=== PATIENT | male | born 1995 | race Caucasian/White ===

== ENCOUNTER 2021-07-07 09:24 | Emergency (ER) | payer SELFPAY ==
[~2021-07-07] VITALS: Ht 175.3 cm; Wt 60.8 kg
[~2021-07-07 09:24] MED LIST: CIPRO500 MG PO
[2021-07-07 12:04] VITALS: BP 136/66
== END 2021-07-07 12:04 | disposition home or self-care (01) | DRG 728 ==
LOC: ED 09:24
DX: A64 Unspecified sexually transmitted disease (principal); F17.210 Nicotine dependence, cigarettes, uncomplicated

== ENCOUNTER 2021-11-21 20:01 | Emergency (ER) | payer SELFPAY ==
[~2021-11-21] VITALS: Ht 175.3 cm; Wt 63.0 kg
[2021-11-21 23:45] VITALS: BP 121/78
[2021-11-21] MEDS ORDERED: VIBRAMYCIN100 M2 PO (23:57)
== END 2021-11-22 01:07 | disposition home or self-care (01) | DRG 605 ==
LOC: ED 20:01
DX: S71.152A Open bite, left thigh, initial encounter (principal); S31.815A Open bite of right buttock, initial encounter; F17.200 Nicotine dependence, unspecified, uncomplicated; W54.0XXA Bitten by dog, initial encounter; Y93.55 Activity, bike riding; Y92.410 Unspecified street and highway as the place of occurrence of the external cause

== ENCOUNTER → 2024-04-27 | Emergency (ER) | payer OTHER ==
[~2024-04-27] VITALS: Ht 175.3 cm; Wt 60.0 kg
[~2024-04-27] MED LIST changes: +VIBRAMYCIN100 M2 PO
[2024-04-27 19:37] VITALS: BP 132/87
[2024-04-27 19:38] VITALS: BP 132/87
== END | DRG 605 ==
LOC: ED 19:20
DX: S10.91XA Abrasion of unspecified part of neck, initial encounter (principal); S10.93XA Contusion of unspecified part of neck, initial encounter; X83.8XXA Intentional self-harm by other specified means, initial encounter; F17.200 Nicotine dependence, unspecified, uncomplicated